=== PATIENT | female | born 1965 | race Caucasian/White ===

== ENCOUNTER 2019-09-14 01:45 | Emergency (ER) | payer OTHER ==
[~2019-09-14] VITALS: Ht 165.1 cm; Wt 84.8 kg
[~2019-09-14 01:45] MED LIST: COZAAR50 MG PO; KEFLEX500 MG PO; METFORMIN HCL500 MG PO; ULTRAM50 MG PO; ZYRTEC10 M3 PO
[2019-09-14] MEDS ORDERED: LIPITOR20 MG (02:06)
[2019-09-14] MEDS ORDERED: NEURONTIN300 MG (02:07)
[2019-09-15] MEDS ORDERED: LEVAQUIN500 MG (02:38)
[2019-09-15] MEDS ORDERED: KETOROLAC 10 MG. (02:39)
[2019-09-15] MEDS ORDERED: ZOFRAN4 MG PO (04:43)
[2019-09-15] MEDS ORDERED: BENADRYL25 MG PO (04:43)
[2019-09-15] MEDS ORDERED: ULTRAM50 MG PO (04:47)
== END 2019-09-14 14:55 | disposition home or self-care (01) ==
LOC: ER 01:45
DX: N13.2 Hydronephrosis with renal and ureteral calculous obstruction (principal); K76.0 Fatty (change of) liver, not elsewhere classified; R10.84 Generalized abdominal pain; N39.0 Urinary tract infection, site not specified; B96.29 Other Escherichia coli [E. coli] as the cause of diseases classified elsewhere

== ENCOUNTER 2019-09-15 02:22 | Emergency (ER) | payer OTHER ==
[~2019-09-15] VITALS: Ht 165.1 cm; Wt 84.8 kg
[~2019-09-15 02:22] MED LIST changes: +LIPITOR20 MG; +NEURONTIN300 MG
[2019-09-15] MEDS ORDERED: LEVAQUIN500 MG (02:38)
[2019-09-15] MEDS ORDERED: KETOROLAC 10 MG. (02:39)
[2019-09-15] MEDS ORDERED: BENADRYL25 MG PO (04:43)
[2019-09-15] MEDS ORDERED: ZOFRAN4 MG PO (04:43)
[2019-09-15] MEDS ORDERED: ULTRAM50 MG PO (04:47)
== END 2019-09-15 05:02 ==
LOC: ER 02:22
DX: T78.49XA Other allergy, initial encounter (principal); X58.XXXA Exposure to other specified factors, initial encounter

== ENCOUNTER 2019-09-18 21:48 | Inpatient (IN) | payer OTHER ==
[~2019-09-18] VITALS: Ht 165.1 cm; Wt 84.8 kg
[~2019-09-18 21:48] MED LIST changes: +BENADRYL25 MG PO; +KETOROLAC 10 MG.; +LEVAQUIN500 MG; +ZOFRAN4 MG PO
[2019-09-18] MEDS ORDERED: COZAAR50 MG PO (21:54)
[2019-09-18] MEDS ORDERED: METFORMIN HCL500 M3 PO (21:55)
--- NOTE | 2019-09-18 22:19 | NUR ---
PTE REFIERE QUE TIENE DOLOR DE PECHO, CONGESTION FIEBRE TEMBLORES ESCALOFRIO DESDE HOY EN LA MADRUGADA, SE OBSERVA PTE ANXIOSA SE PRESENTA AL DR CHONG SE UBICA PTE EN AREA DE OBSERVACION
--- NOTE | 2019-09-18 22:58 | NUR ---
SE ORIENTA AL PACIENTE SOBRE MEDICAMENTO, MUESTRAS DE VICENTE, CANALIZACION Y RADIOLOGIA. PACIENTE REFIERE ENTENDER. SE PROCEEDE A CANALIZAR AL PACIENTE Y COLECTAR LAS MUESTRAS UTILIZANDO MEDIDAS ASEPTICAS. MUESTRAS SON ENVIADAS AL LABORATORIO Y SE VERIFICA LA PATENTICIDAD DE LA CANALIZACION. VENOPUNCION MICHAEL DE EDEMA Y ERITEMA. MUESTRAS SON ENVIADAS AL LABORATORIO. PACIENTE PENDIENTE A ENTREGAR ORINA. ABG SON NOTIFICADAS A MR. CARRASCO.
--- NOTE | 2019-09-19 01:23 | NUR ---
SE RECIBE PTE ALERTA Y ORIENTADA X3 EN CUBICULOS DE PASILLO. PTE SE OBSERVA CON IV BAG COLOCADO Y H/L EL CUAL SE OBSERVA PATENTE. SE COLOCA A PTE EN JAS Y SE CONTINUA MONITORIANDO POR CAMBIOS EN VEGA CONDICION.
--- NOTE | 2019-09-19 03:29 | NUR ---
SE RECIBE PACIENTE EN AREA DE CRITICO JOSE ANGEL DE EMERGENCIAS. PACIENTE ORIENTADA EN [place] ESFERAS, SE CONECTA A MONITOR CARDIACO Y OXIMETRIA DE PULSO. SE JOHN SIGNOS VITALES, ESTABLES AL MOMENTO BP:105/54 P:108 R:19 T:99.1. SE ORIENTA PACIENTE Y FAMILIAR SOBRE AREA VERBALIZAN ENTENDER. DE MATI PACIENTE BAJO OBSERVACION CONTINUA POR CAMBIOS, BARANDAS ELEVADAS Y TIMBRE ACCESIBLE.
--- NOTE | 2019-09-19 05:01 | NUR ---
SE ADMNISTRA MEDICAMENTO IVANZ 1,000MG IV LAURA ORDEN MEDICA. PACIENTE ORIENTADA SOBRE EL MISMO VERBALIZA ENTENDER,
--- NOTE | 2019-09-19 06:41 | NUR ---
SE JOHN MUESTRAS DE VICENTE EN ANTEBRAZO KRISTIN BAJO MEDIDAS ASEPTICAS CRP,LACTIC ACID, PROCALCITONIN. LAURA ORDEN MEDICA, PACIENTE ORIENTADA SOBRE PROCEDIMIENTO VERBALIZA ENTENDER.
--- NOTE | 2019-09-19 08:05 | NUR ---
SE RECIBE DE TURNO ANTERIOR FEMINA DE 55 ANOS,ALERTA,ORIENTADA EN ARTURO BEULAH ESFERAS,DESCANSANDO EN CAMA NIVEL MAS BAJO,BARANDAS ELEVADAS,FRENOS,SANTANA DE IDENTIFICACION COLOCADOS POR SEGURIDAD. CONECTADA A MONITOR CARDIACO,OXIMETRIA DE PULSO CONTINUA. SE OBSERVA CON BUEN PATRON RESPIRATORIO. SATURANDO 97%. EXTREMIDADES SUPERIORES SE OBSERVAN LIBRES DE S/S EDEMA. VENOPUNCION EN MANO DERECHA CON ANGIO #20 SE OBSERVA PATENTE,MICHAEL DE S/S EDEMA Y/O ERITEMA. RECIBIENDO 0.9% NaCL 1,000 ML @ 200ML/HR. ABDOMEN DEPRESIBLE AL TACTO, PERISTALSIS PRESENTE. EXTREMIDADES INFERIORES SE OBSERVAN LIBRES DE S/S EDEMA. PACIENTE CONSULTADA CON QUIEN YA PASO VISITA. SE MATI COMODA EN CAMA BAJO OBSERVACION.
[2019-09-27] MEDS ORDERED: TAMSULOSIN HCL0.4 MG PO (15:51)
== END 2019-09-27 17:50 | disposition home or self-care (01) | DRG 693 ==
LOC: ER 21:48 → SEC-K 09-19 09:27 → MEDJ 09-19 09:27 → SURG 09-19 13:18 → MEDJ 09-19 17:43
PROVIDERS: ADMIT Internal Medicine
PROC: 8E0ZXY6 Isolation (ICD-10-PCS; principal; 2019-09-19)
PROC: B246ZZZ Ultrasonography of Right and Left Heart (ICD-10-PCS; 2019-09-20)
PROC: 3E0F7GC Introduction of Other Therapeutic Substance into Respiratory Tract, Via Natural or Artificial Opening (ICD-10-PCS; 2019-09-22)
PROC: BW40ZZZ Ultrasonography of Abdomen (ICD-10-PCS; 2019-09-22)
PROC: 3E0F7GC Introduction of Other Therapeutic Substance into Respiratory Tract, Via Natural or Artificial Opening (ICD-10-PCS; 2019-09-22)
DX: N13.2 Hydronephrosis with renal and ureteral calculous obstruction (principal); A41.51 Sepsis due to Escherichia coli [E. coli]; Z16.12 Extended spectrum beta lactamase (ESBL) resistance; N39.0 Urinary tract infection, site not specified; B96.29 Other Escherichia coli [E. coli] as the cause of diseases classified elsewhere; D69.49 Other primary thrombocytopenia; D64.89 Other specified anemias; I11.9 Hypertensive heart disease without heart failure; R06.02 Shortness of breath

== ENCOUNTER 2019-10-20 22:19 | Inpatient (IN) | payer OTHER ==
[~2019-10-20] VITALS: Ht 165.1 cm; Wt 83.9 kg
[~2019-10-20 22:19] MED LIST changes: +METFORMIN HCL500 M3 PO; +TAMSULOSIN HCL0.4 MG PO
--- NOTE | 2019-10-20 22:35 | NUR ---
PTE ALERTA Y ORIENTADA X 3 ESFERAS QUIEN REFIER TENER DOLOR ABDOMINAL,NAUSEAS,MAREOS,INCONTINENCIA URINARIA,ARDOR AL ORINAR,FIEBRE,REFIERE TENER DOS PIEDRAS EN RINON LT Y TENER LOS MISMO SINTOMAS DE SEPSIS LOS CUALES PRESENTO DOS SEMANAS ATRAS Y ESTUVO HOSPITALIZADA.
--- NOTE | 2019-10-20 23:54 | NUR ---
SE ORIENTA A PACIENTE SOBRE TRATAMIENTO. SE JOHN MUESTRAS DE LABORATORIO ORDENADAS. SE CANALIZA CON AREA DE VENOPUNCION MICHAEL DE EDEMA O ENROJECIMIENTO. SE ADMINISTRAN MEDICAMENTOS ORDENADOS. SE MANTIENE EN ORDENADOS. SE MANTIENE EN OBSERVACION POR CAMBIOS.
--- NOTE | 2019-10-21 07:49 | NUR ---
SE RECIBE DE TURNO ANTERIOR FEMINA DE 55 ANOS,ALERTA,ORIENTADA EN ARTUR[place] BEULAH ESFERAS,JUNTO A FAMILIAR,DESCANSANDO EN CAMA NIVEL MAS BAJO,BARANDAS ELEVADAS,FRENOS COLOCADOS,SANTANA DE IDENTIFICACION COLOCADOS POR SEGURIDAD. VENOPUNCION PATENTE LIMPIA,SECA,MICHAEL DE S/S EDEMA Y/O ERITEMA;RECIBIENDO 0.9%NSS 1,000 ML @ 125ML/HR. PENDIENTE MEDICAMENTO EL CUAL ES ENVIADO A BUSCAR A FARMACIA IPD.
== END 2019-10-26 10:43 | disposition home or self-care (01) | DRG 690 ==
LOC: ER 22:19 → MEDI 10-21 10:08
PROVIDERS: ADMIT Internal Medicine
PROC: BW21ZZZ Computerized Tomography (CT Scan) of Abdomen and Pelvis (ICD-10-PCS; principal; 2019-10-24)
DX: N13.6 Pyonephrosis (principal); R78.81 Bacteremia; K29.70 Gastritis, unspecified, without bleeding; I10 Essential (primary) hypertension; E11.9 Type 2 diabetes mellitus without complications; B96.29 Other Escherichia coli [E. coli] as the cause of diseases classified elsewhere